=== PATIENT | male | born 1995 | race Two or more races ===

== ENCOUNTER 2024-05-22 02:29 | Emergency (ER) | payer MEDICAID, OTHER ==
[~2024-05-22] VITALS: Ht 180.3 cm; Wt 90.7 kg
[2024-05-22] MEDS ORDERED: AMOX-430 PO (05:15)
[2024-05-22] MEDS ORDERED: KETOROLAC TROMETHAMINE INJ 30 MG/ML VIAL ONE (05:18)
[2024-05-22] MEDS: KETOROLAC TROMETHAMINE INJ 30 MG/ML VIAL IM ONE (05:26)
[2024-05-22 05:29] VITALS: BP 128/81; TEMP 98; O2SAT 99
== END 2024-05-22 05:29 | disposition home or self-care (01) ==
LOC: ER 02:41
DX: L02.211 Cutaneous abscess of abdominal wall (principal)
CPT/HCPCS: 99283; 10060; 96372; J1885; A6407